=== PATIENT | female | born 1950 | race Caucasian/White ===

== ENCOUNTER 2017-01-05 03:36 | Emergency (ER) | payer BC, MEDICARE ==
--- NOTE | ~2017-01-05 | ER ---
PATIENT'S NAME: SARIAH [facility] AGE: 66 Y [address] ROOM: [place] [address] LOCATION: [facility] ADMIT DATE: 01/05/2017 ER/Outpatient Report DISCHARGE DATE: 01/05/2017 FAMILY PHYSICIAN: Victor Hugo Elliott MD ATTENDING PHYSICIAN: Julio Huber Time of Arrival: Time of Evaluation: Admission date and time documented in the medical record. I saw the patient at 0355 hours. CHIEF COMPLAINT: Left ankle and foot pain. HISTORY OF PRESENT ILLNESS: The patient is a 66-year-old female, who has had left foot and ankle pain since this past Monday. No fall or trauma. No other injury. It has been swollen and tender. Got to the point that she could not take the pain anymore and presented to the emergency room for evaluation. The patient does have a history of degenerative osteoarthritis. No other joint muscle swelling, redness, or pain. HOME MEDICATIONS: See attached medication list. ALLERGIES: NONE. SOCIAL HISTORY: Nonsmoker and nondrinker. SIGNIFICANT PAST MEDICAL HISTORY: 1. Degenerative osteoarthritis. 2. Thyroid cancer. PAST SURGICAL HISTORY: Operations: Thyroidectomy. REVIEW OF SYSTEMS: All systems reviewed by me are negative with the exception of those discussed in the history of the present illness. PHYSICAL EXAMINATION: VITAL SIGNS: Temperature 97.9, tympanic; pulse 69; respiratory rate 16; blood pressure 131/71; and O2 saturation on room air is 97%. MUSCULOSKELETAL: On examination of the left foot, there is swelling and PATIENT'S NAME: CAPE CANAVERAL [facility] AGE: 66 Y [address] ROOM: [place] [address] LOCATION: [facility] ADMIT DATE: 01/05/2017 ER/Outpatient Report DISCHARGE DATE: 01/05/2017 FAMILY PHYSICIAN: Victor Hugo Elliott MD ATTENDING PHYSICIAN: Julio Huber tenderness to palpation. No deformity other than the swelling. Neurovascularly intact. Pulse intact. It is not hot to the touch. Not red. No red streaking. No open wounds. No abrasions. Achilles tendon intact. IMAGING DATA: X-ray showed no fracture or dislocation of the ankle or the foot. We will review x-ray with the radiologist. LABORATORY DATA: Uric acid was elevated at 8.5. Sedimentation rate is elevated at 66. White count was 8500, 66 segs, 22 lymphs, 8 monos, 3 eos, and 1 baso. Hemoglobin is 12.0 with a hematocrit of 37.8, and platelet count is 336,000. EMERGENCY DEPARTMENT COURSE: I did give the patient 60 mg of Toradol, and 125 mg of Solu-Medrol IM in the emergency room. IMPRESSION: Acute inflammatory process involving the left ankle and left foot, etiology uncertain, but the patient's uric acid is elevated so it could be gout. PLAN: The patient was dismissed home. Observation. Activity as tolerated. Warm packs with elevation intermittently as needed. Continue present home medications and care. Prednisone 20 mg b.i.d. for a week. [place] 7.5/325 as need for pain, #20. Follow up with personal physician in 5 to 7 days. Discussion ensued with the patient concerning my findings and recommendations, she understands. JULIO HUBER MD SDS/modl /[id number] d: 01/05/17 1015 t: 01/10/17 1821, OUTPATIENT REPORT
[2017-01-05 04:08] LABS: BASOPHIL # 0.1 K/uL (0.0-0.2); BASOPHIL % 0.6 %; EOSINOPHIL # 0.3 K/uL (0.0-0.5); EOSINOPHIL % 3.4 %; HEMATOCRIT 37.8 % (33.0-46.0); IMMATURE GRANULOCYTE % 0.2 %; LYMPHOCYTE # 1.9 K/uL (0.8-4.0); LYMPHOCYTE % 22.1 %; MCH 28.8 pg (27.0-34.0); MCHC 31.7 gm/dL (32.0-36.5); MCV 90.9 fl (83.0-98.0); MONOCYTE # 0.7 K/uL (0.0-1.0); MONOCYTE % 7.8 %; MPV 9.9 fl (9.4-12.4); NEUTROPHIL # (ANC) 5.6 K/uL (1.8-7.8); NEUTROPHIL % 65.9 %; NRBC % 0 /100WBC (0-0.00); PLATELET COUNT 336 K/uL (150-450); RBC 4.16 M/uL (3.50-5.50); RDW-CV 13.6 % (11.9-14.6); WBC 8.5 K/uL (4.0-11.0)
== END 2017-01-05 05:04 | disposition disaster alternative care site (69) ==
LOC: GMED 03:36
PROVIDERS: Emergency Medicine
DX: M25.572 Pain in left ankle and joints of left foot (principal); M19.90 Unspecified osteoarthritis, unspecified site
CPT/HCPCS: J1885; J2930